=== PATIENT | female | born 1995 | race Hispanic/Latino ===

== ENCOUNTER 2021-08-29 08:42 | Emergency (ER) | payer OTHER, SELFPAY ==
--- OUTSIDE RECORDS SUMMARY | 2021-08-29 08:52 | XMS REPORT | Continuity of Care Document ---
:1995 Author Organization [facility] t Address [address] [place] [address] Care Team Providers Name Role Phone Janiya Coyle Attending Clinician Unavailable DR Mayo LUQUE Attending Clinician Unavailable Genie, Misbah Admitting Clinician Unavailable DR Mayo LUQUE Admitting Clinician Unavailable Payers Payer Name Policy Type Policy Number Effective Date Expiration Date S ource Self Pay P [id number] 2019 00:00:00 Problems This patient has no known problems. Allergies, Adverse Reactions, Alerts Allergy Allergy Status Severity Reaction(s) Onset Inactive Treating Comm ents Source Name Type Date Date Clinician No Known DA Active U [facility] No Known DA Active U 2019- [facility] [place] DA Active SV 2013- [facility] ins 01-30 [facility] 00:[facility] e 00 [facility] [place] DA Active SV RASH, CLOSES 2013- [facility] ins THROAT 01-30 [facility] 00:00: e 00 [facility] Center Medications This patient has no known medications. Procedures This patient has no known procedures. Encounters Start End Encounter Admission Attending Care Care Encounter Source Date/Time Date/Time Type Type Clinicians Facility Department ID 2021-05-30 Outpatient [facility] [id number] [facility] 16:17:44 [id number] [facility] 2019-12-10 Inpatient [facility] ELVIRAER [id number] [facility] 05:22:00 [id number] [facility] 2021-04-14 2021-04-14 Emergency DEMARCUS Sampson [id number] [facility] 06:40:00 07:55:00 Janiya [id number] [facility] 2015-11-22 2015-11-22 Outpatient Miriam ENE [facility] RAD 632 [id number] [facility] 09:02:00 23:59:00 [facility] Results Test Description Test Time Test Comments Results Result [facility] e Comments - XR CHEST 1 V 2021-04-14 07:40:00 [facility])Name: NINO BLANDON : 1995 Sex: F FAX: Tessa Owens NP [place]: B St: REG FAX: Flo Wu MD [phone] Name: NINO BLANDON [facility] : 1995 Age/S: 26/F [address] Unit #: [id number] Loc: AMANDA Caicedo [address] Phys: Tessa Owens NP Acct: [id number] Dis Date: Status: REG ER PHONE #: [phone] Exam Date: 04/14/2021 0732 FAX #: [phone] Reason: wheezing and cough EXAMS: CPT CODE: [id number] XR CHEST 1 V [id number] HISTORY: wheezing and cough TECHNIQUE: AP chest x-ray COMPARISON: None FINDINGS: No airspace consolidation or pleural effusion. Normal heart size. Mediastinal silhouette is unremarkable. Visualized osseous structures are grossly intact. IMPRESSION: No radiographic evidence of acute cardiopulmonary process. LOCATION: LP at 0740 Reported and signed by: Ally Lopez D.O. CC: Tessa Owens BUSHEL GIRL; Flo Prescott MD Technologist: LUIGI RODRÍGUEZ Trnutrd Date/Time/By: 04/14/2021 (5240) : By: [email or web address] Orig Print D/T: S: 04/14/2021 (0726) PAGE 1 Signed Report COVID 19 INHOUSE AG 2021-04-14 07:14:00 Test Item Value Reference Range Interpretation Comme nts COVID 19 INHOUSE AG (test code = [id number]) NEGATIVE NEGATIVE
[2021-08-29] MEDS ORDERED: ONDANSETRON 4 MG/2 ML VIAL ONE (09:56)
[2021-08-29] MEDS ORDERED: MORPHINE 4 MG/ML SYR ONE (09:56)
[2021-08-29 10:49] LABS: Urine Blood Negative (Negative); Urine Glucose 3+ (Negative); Urine Protein Negative (Negative); Urine Specific Gravity 1.025 (1.005-1.030)
--- NOTE | 2021-08-29 11:49 | RAD REPORT ---
EXAM DESCRIPTION: CT - C Spine Wo Con - 08/29/2021 11:27 am CLINICAL HISTORY: neck pain, left arm numbness Neck pain, radiculopathy COMPARISON: Neck Angio dated 08/29/2021 FINDINGS: The cervical vertebral body heights and disc spaces are maintained. 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 No evidence of acute cervical spine fracture or subluxation. Prevertebral soft tissues are normal in thickness. IMPRESSION: Negative for acute cervical spine abnormality. 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 All CT scans are performed using dose optimization technique as appropriate and may include automated exposure control or mA/KV adjustment according to patient size.
--- NOTE | 2021-08-29 11:56 | RAD REPORT ---
EXAM DESCRIPTION: CT - Neck Angio - 08/29/2021 11:27 am CLINICAL HISTORY: left sided neck pain, left arm numbness Neck pain, radiculopathy, slightly COMPARISON: No comparisons TECHNIQUE: CT angiography of the neck vessels was performed with MIPs. All CT scans are performed using dose optimization technique as appropriate and may include automated exposure control or mA/KV adjustment according to patient size. FINDINGS: A left aortic arch is identified with normal three vessel configuration of the great vesse ls. No significant flow abnormality is seen of the common carotid bilaterally. No significant stenosis is identified involving the cervical segments of both internal carotid arteri es. Normal flow is seen within both vertebral arteries. IMPRESSION: No significant flow abnormality of the neck vessels is identified.
[2021-08-29] MEDS ORDERED: DIAZEPAM 10 MG/2 ML INJ SYRINGE ONE (12:34)
[2021-08-29] MEDS ORDERED: NA CHLORIDE 0.9% 1,000 ML ONE (12:34)
[2021-08-29] MEDS ORDERED: KETOROLAC 30 MG/ML INJ ONE (12:34)
[2021-08-29 12:59] LABS: BUN Blood Urea Nitrogen 10 mg/dL (7-18); Bicarbonate 27 mmol/L (21-32); Glucose Level 334 mg/dL (74-106); Potassium 3.7 mmol/L (3.5-5.1); Sodium Level 135 mmol/L (136-145)
--- NOTE | 2021-08-29 14:39 | ER ---
Nurse's Notes [facility] Name: Luciana Alvarado Age: 26 yrs Sex: Female : 1995 Arrival Date: 08/29/2021 Time: 08:43 Bed 20 Private MD: Diagnosis: Strain of muscle, fascia and tendon at neck level;Hyperglycemia, unspecified Presentation: 08/29 09:22 Chief complaint: Patient states: Pt was cleaning out fridge yesterday 0700 and jh5 heard/felt her neck pop on the left posterior side and since has been in excessive pain with accompanied headache and a shooting pain down back and up into her ear with ear pain today. Coronavirus screen: Vaccine status: Patient reports being unvaccinated. Client denies travel out of the [place] in the last 14 days. At this time, the client does not indicate any symptoms associated with coronavirus-19. Ebola Screen: Patient negative for fever greater than or equal to 101.5 degrees Fahrenheit, and additional compatible Ebola Virus Disease symptoms Patient denies exposure to infectious person. Patient denies travel to an Ebola-affected area in the 21 days before illness onset. Initial Sepsis Screen: Does the patient meet any 2 criteria? No. Patient's initial sepsis screen is negative. Does the patient have a suspected source of infection? No. Patient's initial sepsis screen is negative. Risk Assessment: Do you want to hurt yourself or someone else? Patient reports no desire to harm self or others. Onset of symptoms was August 29, 2021 at 07:00. 09:22 Method Of Arrival: Ambulatory [facility] 09:22 Acuity: LC 4 5 09:48 Acuity: LC 3 iw Triage Assessment: 09:25 General: Appears in no apparent distress. uncomfortable, obese, well groomed, well jh5 developed, well nourished, Behavior is calm, cooperative, appropriate for age. Pain: Complains of pain in left posterior neck. 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 - Social history:: Smoking status: Patient denies any tobacco usage or history of. Patient uses alcohol, only on a social basis. Screenin:47 Abuse screen: Denies threats or abuse. Nutritional screening: No deficits noted. vg1 Tuberculosis screening: No symptoms or risk factors identified. Fall Risk No fall in past 12 months (0 pts). No secondary diagnosis (0 pts). IV access (20 points). Ambulatory Aid- None/Bed Rest/Nurse Assist (0 pts). Gait- Normal/Bed Rest/Wheelchair (0 pts) Mental Status- Oriented to own ability (0 pts). Total Flores Fall Scale indicates No Risk (0-24 pts). Assessment: 09:45 General: Appears in no apparent distress. uncomfortable, Behavior is calm, cooperative. vg1 Pain: Complains of pain in left side of neck Pain currently is 10 out of 10 on a pain scale. Pain began yesterday. Neuro: Level of Consciousness is awake, alert, obeys commands, Oriented to person, place, time, situation, Reports headache. Cardiovascular: Patient's skin is warm and dry. Respiratory: Airway is patent Respiratory effort is even, unlabored. GI: Abdomen is round non-distended, Reports nausea. : No signs and/or symptoms were reported regarding the genitourinary system. EENT: No signs and/or symptoms were reported regarding the EENT system. Derm: Skin is intact, is healthy with good turgor. Musculoskeletal: Circulation, motion, and sensation intact. 10:51 Reassessment: Patient appears in no apparent distress at this time. No changes from vg1 previously documented assessment. Patient and/or family updated on plan of care and expected duration. Pain level reassessed. Patient is alert, oriented x 3, equal unlabored respirations, skin warm/dry/pink. Pt states 'the medication help just a little bit but my headache wont go away'. Provider notified. 12:20 Reassessment: Patient appears in no apparent distress at this time. Patient and/or vg1 family updated on plan of care and expected duration. Pain level reassessed. Patient is alert, oriented x 3, equal unlabored respirations, skin warm/dry/pink. notified pt of medication order pt stated 'can the doctor just prescribed me medication to go home with; I just want to go home'. Provider notified. 12:30 Reassessment: finger stick results of BG was 338; pt denies of having hx of DM; denies vg1 polyuria, but states 'im just very thirsty'. Provider notified. 13:30 Reassessment: Patient appears in no apparent distress at this time. Patient and/or vg1 family updated on plan of care and expected duration. Pain level reassessed. Patient is alert, oriented x 3, equal unlabored respirations, skin warm/dry/pink. Patient states feeling better. Vital Signs: 09:22 BP 128 / 78; Pulse 91; Resp 18; Temp 98.0; Pulse Ox 100% ; Weight 90.72 kg; Height 5 [facility] ft. 2 in. (157.48 cm); Pain 10/10; 09:46 BP 117 / 69; Pulse 93; Resp 16; Pulse Ox 99% ; vg1 10:53 BP 105 / 65; Pulse 78; Resp 16; Pulse Ox 97% ; vg1 13:02 BP 112 / 67; Pulse 90; Resp 16; Pulse Ox 100% ; vg1 13:45 BP 104 / 67; Pulse 66; Resp 16; Pulse Ox 99% ; vg1 09:22 Body Mass Index 36.58 (90.72 kg, 157.48 cm) [facility] ED Course: 08:43 Patient arrived in ED. am2 09:24 Triage completed. [facility] 09:25 Arm band placed on right wrist. [facility] 09:27 Santos Santoro PA is PHCP. [facility] 09:27 Alessandro Alejandro MD is Attending Physician. [facility] 09:45 Miriam Guevara, DEVANG is Primary Nurse. [facility] 09:47 Patient has correct armband on for positive identification. Bed in low position. Call [facility] light in reach. Side rails up X 1. Adult w/ patient. 10:04 Initial lab(s) drawn, by nm, sent to lab. Inserted saline lock: 20 gauge in right 1 antecubital area, using aseptic technique. Blood collected. 11:27 CT C Spine In Process Unspecified. EDMS 11:27 CT Neck Angio In Process Unspecified. EDMS 15:06 No provider procedures requiring assistance completed. IV discontinued, intact, vg1 bleeding controlled, No redness/swelling at site. Pressure dressing applied. Administered Medications: 10:01 Drug: Zofran (Ondansetron) 4 mg Route: IVP; Site: right antecubital; vg1 10:52 Follow up: Response: No adverse reaction; Marked relief of symptoms vg1 10:03 Drug: morphine 4 mg Route: IVP; Site: right antecubital; vg1 10:52 Follow up: Response: Pain is unchanged, physician notified vg1 12:35 Drug: NS 0.9% 1000 ml Route: IV; Rate: 1 bolus; Site: right antecubital; vg1 13:51 Follow up: IV Status: Completed infusion; IV Intake: 1000ml vg1 12:36 Drug: Ketorolac 30 mg Route: IVP; Site: right antecubital; vg1 13:51 Follow up: Response: No adverse reaction; Marked relief of symptoms vg1 12:38 Drug: Valium (diazepam) 2 mg Route: IVP; Site: right antecubital; vg1 13:51 Follow up: Response: No adverse reaction; Marked relief of symptoms vg1 Intake: 13:51 IV: 1000ml; Total: 1000ml. vg1 Outcome: 14:38 Discharge ordered by . catina 15:06 Discharged to home ambulatory, with family. vg1 15:06 Condition: good 15:06 Discharge instructions given to patient, Instructed on discharge instructions, follow up and referral plans. medication usage, Demonstrated understanding of instructions, follow-up care, medications, Prescriptions given X 2. 15:06 Patient left the ED. vg1 Signatures: Dispatcher [employer] EDMS Santos Santoro PA PA jmm Williams, Irene, RN RN iw Moreno, Amanda am2 Garcia, Victoria RN DEVANG 1 Janiya Castaneda RN RN jh5 Corrections: (The following items were deleted from the chart) 10:53 10:51 Reassessment: Patient appears in no apparent distress at this time. No changes vg1 from previously documented assessment. Patient and/or family updated on plan of care and expected duration. Pain level reassessed. Patient is alert, oriented x 3, equal unlabored respirations, skin warm/dry/pink. vg1
--- NOTE | 2021-08-29 14:39 | EDPHYS ---
Physician Documentation [facility] Name: Luciana Alvarado Age: 26 yrs Sex: Female : 1995 Arrival Date: 08/29/2021 Time: 08:43 Bed 20 Private MD: ED Physician Alessandro Alejandro HPI: 08/29 09:43 This 26 yrs old Female presents to ER via Ambulatory with complaints of Neck jmm Pain, <24hrs Old, Nausea. 09:43 The patient or guardian complains of an injury, pain. Onset: The symptoms/episode jmm began/occurred acutely, 1 day(s) ago. Associated signs and symptoms: Pertinent positives: tingling, in the left arm. The pain does not radiate. This is a 26 year old female with no known medical conditions that presents emergency department with complaints of left-sided neck pain which occurred after pulling her refrigerator. Patient states she felt a sudden pop that runs along the left side of her neck to the base of her skull. Patient states she has had intermittent episodes of tingling to the left arm since. Denies unilateral weakness.. 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 - Social history:: Smoking status: Patient denies any tobacco usage or history of. Patient uses alcohol, only on a social basis. ROS: 09:43 Constitutional: Negative for fever, chills, and weight loss, Cardiovascular: Negative jmm for chest pain, palpitations, and edema, Respiratory: Negative for shortness of breath, cough, wheezing, and pleuritic chest pain. 09:43 Neck: Positive for pain with movement. 09:43 All other systems are negative. Exam: 09:43 Constitutional: This is a well developed, well nourished patient who is awake, alert, jmm and in no acute distress. Head/Face: atraumatic. Eyes: EOMI, no conjunctival erythema appreciated ENT: Moist Mucus Membranes 09:43 Chest/axilla: Normal chest wall appearance and motion. Cardiovascular: Regular rate and rhythm. No edema appreciated Respiratory: Normal respirations, no respiratory distress appreciated Abdomen/GI: Non distended, soft 09:43 Neck: C-spine: appears grossly normal, ROM/movement: pain, that is moderate, with any movement. 09:43 Back: ROM is painful, with all movement. 09:43 Musculoskeletal/extremity: ROM: intact in all extremities. 09:43 Skin: Appearance: Color: normal in color. 09:43 Neuro: Orientation: is normal, Mentation: is normal, Memory: is normal. 09:43 Psych: Behavior/mood is pleasant, cooperative. Vital Signs: 09:22 BP 128 / 78; Pulse 91; Resp 18; Temp 98.0; Pulse Ox 100% ; Weight 90.72 kg; Height 5 jh5 ft. 2 in. (157.48 cm); Pain 10/10; 09:46 BP 117 / 69; Pulse 93; Resp 16; Pulse Ox 99% ; vg1 10:53 BP 105 / 65; Pulse 78; Resp 16; Pulse Ox 97% ; vg1 13:02 BP 112 / 67; Pulse 90; Resp 16; Pulse Ox 100% ; vg1 13:45 BP 104 / 67; Pulse 66; Resp 16; Pulse Ox 99% ; vg1 09:22 Body Mass Index 36.58 (90.72 kg, 157.48 cm) 5 MDM: 09:43 Patient medically screened. [facility] 14:37 Data reviewed: vital signs, nurses notes. Counseling: I had a detailed discussion with catina the patient and/or guardian regarding: the historical points, exam findings, and any diagnostic results supporting the discharge/admit diagnosis, radiology results, the need for outpatient follow up, to return to the emergency department if symptoms worsen or persist or if there are any questions or concerns that arise at home. ED course: Urinalysis revealed +3 glucose which raise concerns the patient may have underlying diabetes mellitus. Mother is a diabetic. CT imaging was negative I do not suspect cord compression or dissection. Patient's chemistry was otherwise normal. I do not suspect diabetic ketoacidosis. Patient advised to follow up with her PCP or establish with primary care provider for further evaluation otherwise given strict return precautions. Patient understood and agrees plan of care.. 08/29 09:46 Order name: BMP; Complete Time: 13:05 [facility] 08/29 10:49 Order name: Urine Dipstick-Ancillary; Complete Time: 10:54 EDMS 08/29 09:45 Order name: CT C Spine; Complete Time: 11:52 [facility] 08/29 09:45 Order name: CT Neck Angio; Complete Time: 11:59 [facility] 08/29 12:39 Order name: Glucose, Ancillary Testing; Complete Time: 12:47 [facility] 08/29 14:02 Order name: Glucose, Ancillary Testing; Complete Time: 14:16 [facility] 08/29 09:45 Order name: Saline Lock; Complete Time: 10:04 [facility] 08/29 09:46 Order name: Urine Test (obtain specimen); Complete Time: 10:51 [facility] 08/29 12:23 Order name: Finger Stick; Complete Time: 12:27 [facility] Administered Medications: 10:01 Drug: Zofran (Ondansetron) 4 mg Route: IVP; Site: right antecubital; vg1 10:52 Follow up: Response: No adverse reaction; Marked relief of symptoms vg1 10:03 Drug: morphine 4 mg Route: IVP; Site: right antecubital; vg1 10:52 Follow up: Response: Pain is unchanged, physician notified vg1 12:35 Drug: NS 0.9% 1000 ml Route: IV; Rate: 1 bolus; Site: right antecubital; vg1 13:51 Follow up: IV Status: Completed infusion; IV Intake: 1000ml vg1 12:36 Drug: Ketorolac 30 mg Route: IVP; Site: right antecubital; vg1 13:51 Follow up: Response: No adverse reaction; Marked relief of symptoms vg1 12:38 Drug: Valium (diazepam) 2 mg Route: IVP; Site: right antecubital; vg1 13:51 Follow up: Response: No adverse reaction; Marked relief of symptoms vg1 Disposition Summary: 08/29/21 14:38 Discharge Ordered Location: Home [facility] Condition: Stable [facility] Diagnosis - Strain of muscle, fascia and tendon at neck level jmm - Hyperglycemia, unspecified jm Followup: [facility] - With: Private Physician - When: 2 - 3 days - Reason: Recheck today's complaints, Continuance of care, Re-evaluation by your physician Discharge Instructions: - Discharge Summary Sheet [facility] - Hyperglycemia jm - Cervical Strain and Sprain Rehab-SportsMed [facility] Forms: - Medication Reconciliation Form jmm - Thank You Letter jmm - Antibiotic Education jmm - Prescription Opioid Use jmm - Family Work Release iw Prescriptions: - Ibuprofen 800 mg Oral Tablet - take 1 tablet by ORAL route every 8 hours As needed take with food; 30 tablet; jmm Refills: 0, Product Selection Permitted - Zanaflex 4 mg Oral Tablet - take 1 tablet by ORAL route every 8 hours As needed; 20 tablet; Refills: 0, deloresm Product Selection Permitted Signatures: Dispatcher [employer] Santos Casey PA PA jmm Garcia, Victoria, RN RN vg1 Janiya Castaneda RN RN jh5
[2021-08-29 15:28] VITALS: TEMP 98
[2021-08-29 15:33] VITALS: BP 104/67; O2SAT 99
== END 2021-08-29 15:06 | disposition home or self-care (01) ==
LOC: ER 08:42
DX: S16.1XXA Strain of muscle, fascia and tendon at neck level, initial encounter (principal); R73.9 Hyperglycemia, unspecified; X50.0XXA Overexertion from strenuous movement or load, initial encounter; Y92.009 Unspecified place in unspecified non-institutional (private) residence as the place of occurrence of the external cause; Z88.0 Allergy status to penicillin
CPT/HCPCS: 36415; 70498; 72125; 80048; 81003; 82947; 96361; 96374; 96375; 99284; J2405; J3360; J7030; Q9967

== ENCOUNTER 2022-02-12 22:48 | Emergency (ER) | payer SELFPAY ==
--- NOTE | 2022-02-12 23:14 | ER ---
Nurse's Notes [facility] Name: Luciana Alvarado Age: 27 yrs Sex: Female : 1995 Arrival Date: 02/12/2022 Time: 22:51 Bed Waiting Private MD: Diagnosis: Coronavirus infection, unspecified Presentation: 02/12 23:09 Chief complaint: Patient states: COVID + - headache, sour stomach since Thursday. bb Coronavirus screen: Client presents with at least one sign or symptom that may indicate coronavirus-19. Standard/surgical mask placed on the client. Ebola Screen: No symptoms or risks identified at this time. Initial Sepsis Screen: Does the patient meet any 2 criteria? No. Patient's initial sepsis screen is negative. Does the patient have a suspected source of infection? No. Patient's initial sepsis screen is negative. Risk Assessment: Do you want to hurt yourself or someone else? Patient reports no desire to harm self or others. Onset of symptoms was February 12, 2022. 23:09 Method Of Arrival: Ambulatory bb 23:09 Acuity: LC 4 bb Triage Assessment: 23:12 Headache History: Denies prior headaches. General: Appears in no apparent distress. bb comfortable, Behavior is calm, cooperative, appropriate for age. Pain: Complains of pain in face Pain does not radiate. Pain currently is 8 out of 10 on a pain scale. Quality of pain is described as throbbing, Pain began Also complains of no other associated symptoms. EENT: No signs and/or symptoms were reported regarding the EENT system. Neuro: Level of Consciousness is awake, alert, obeys commands, Oriented to person, place, time, situation. Cardiovascular: Capillary refill < 3 seconds Patient's skin is warm and dry. Respiratory: Airway is patent Respiratory effort is even, unlabored. 23:13 GI: Abdomen is round non-distended. : No signs and/or symptoms were reported bb regarding the genitourinary system. Derm: No signs and/or symptoms reported regarding the dermatologic system. Musculoskeletal: No signs and/or symptoms reported regarding the musculoskeletal system. 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 - Social history:: Smoking status: Patient denies any tobacco usage or history of. Patient/guardian denies using alcohol. Screenin:19 Abuse screen: Denies threats or abuse. Denies injuries from another. Nutritional bb screening: No deficits noted. Tuberculosis screening: No symptoms or risk factors identified. Fall Risk None identified. Assessment: 23:19 Reassessment: See triage assessment. bb Vital Signs: 23:09 BP 135 / 90; Pulse 80; Resp 18; Temp 97.7(TE); Pulse Ox 100% on R/A; Weight 97.52 kg; bb Height 5 ft. 2 in. (157.48 cm); Pain 6/10; 23:09 Body Mass Index 39.32 (97.52 kg, 157.48 cm) bb ED Course: 22:51 Patient arrived in ED. bp1 23:07 [facility] Seth[facility]-C [facility] kb 23:07 Ned Murillo MD is Attending Physician. kb 23:12 Triage completed. bb 23:13 Arm band placed on right wrist. bb 23:19 Patient has correct armband on for positive identification. Placed in gown. Bed in low bb position. Call light in reach. Side rails up X2. washer and crusher tender on. Pulse ox on. NIBP on. Door closed. Noise minimized. Warm blanket given. 23:19 No provider procedures requiring assistance completed. bb 23:20 Patient did not have IV access during this emergency room visit. bb Administered Medications: No medications were administered Medication: 23:19 VIS not applicable for this client. bb Outcome: 23:13 Discharge ordered by . kb 23:20 Discharged to home ambulatory, with family. bb 23:20 Condition: stable 23:20 Discharge instructions given to patient, family, Instructed on discharge instructions, follow up and referral plans. medication usage, Demonstrated understanding of instructions, follow-up care, medications, Prescriptions given X 1. 23:20 Patient left the ED. bb Signatures: Kristine Sethi FNP-C FNP-Ckb Ballard, Brenda, RN RN bb Re Jamil bp1 Corrections: (The following items were deleted from the chart) 23:13 23:12 PMHx: None; bb bb
--- NOTE | 2022-02-12 23:14 | EDPHYS ---
Physician Documentation [facility] Name: Luciana Alvarado Age: 27 yrs Sex: Female : 1995 Arrival Date: 02/12/2022 Time: 22:51 Bed Waiting Private MD: ED Physician Ned Murillo HPI: 02/13 01:08 This 27 yrs old Female presents to ER via Ambulatory with complaints of Cough, kb Headache. 01:08 The patient or guardian reports cough, that is intermittent, described as mild. Onset: kb The symptoms/episode began/occurred 4 day(s) ago. Severity of symptoms: At their worst the symptoms were moderate, in the emergency department the symptoms are unchanged. Modifying factors: The symptoms are alleviated by nothing, the symptoms are aggravated by nothing. Associated signs and symptoms: The patient has no apparent associated signs or symptoms. The patient has not experienced similar symptoms in the past. The patient has not recently seen a physician. Pt reports cough and headache that started on Thursday. States she tested positive for covid on Thursday as well. 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 - Social history:: Smoking status: Patient denies any tobacco usage or history of. Patient/guardian denies using alcohol. ROS: 02/13 01:08 Constitutional: Negative for fever, chills, and weight loss. kb Respiratory: Positive for cough, Negative for dyspnea on exertion, hemoptysis, orthopnea, pleurisy, shortness of breath, sputum production, wheezing. Neuro: Positive for headache. All other systems are negative. Exam: 01:08 Constitutional: This is a well developed, well nourished patient who is awake, alert, kb and in no acute distress. Head/Face: Normocephalic, atraumatic. ENT: Moist Mucous membranes Cardiovascular: Regular rate and rhythm with a normal S1 and S2. No gallops, murmurs, or rubs. No pulse deficits. Respiratory: Respirations even and unlabored. No increased work of breathing. Talking in full sentences Skin: Warm, dry with normal turgor. Normal color. MS/ Extremity: Pulses equal, no cyanosis. Neurovascular intact. Full, normal range of motion. Neuro: Awake and alert, GCS 15, oriented to person, place, time, and situation. Moves all extremities. Normal gait. Psych: Awake, alert, with orientation to person, place and time. Behavior, mood, and affect are within normal limits. Vital Signs: 02/12 23:09 BP 135 / 90; Pulse 80; Resp 18; Temp 97.7(TE); Pulse Ox 100% on R/A; Weight 97.52 kg; bb Height 5 ft. 2 in. (157.48 cm); Pain 6/10; 23:09 Body Mass Index 39.32 (97.52 kg, 157.48 cm) bb MDM: 23:08 Patient medically screened. kb 23:16 Data reviewed: vital signs, nurses notes. Data interpreted: Pulse oximetry: on room air kb is 100 %. Interpretation: normal. Counseling: I had a detailed discussion with the patient and/or guardian regarding: the historical points, exam findings, and any diagnostic results supporting the discharge/admit diagnosis, the need for outpatient follow up, a family practitioner, to return to the emergency department if symptoms worsen or persist or if there are any questions or concerns that arise at home. Administered Medications: No medications were administered Disposition Summary: 02/12/22 23:13 Discharge Ordered Location: Home kb Condition: Stable kb Diagnosis - Coronavirus infection, unspecified kb Followup: kb - With: Emergency Department - When: As needed - Reason: Worsening of condition Followup: kb - With: Private Physician - When: 2 - 3 days - Reason: Recheck today's complaints, Continuance of care, Re-evaluation by your physician Discharge Instructions: - Discharge Summary Sheet kb - Viral Respiratory Infection, [id number] kb - COVID-19 kb Forms: - Medication Reconciliation Form kb - Thank You Letter kb - Antibiotic Education kb - Prescription Opioid Use kb Prescriptions: - Tessalon Perles 100 mg Oral Capsule - take 1 capsule by ORAL route every 8 hours As needed; 15 capsule; Refills: 0, kb Product Selection Permitted Signatures: Kristine Sethi, AMARI-C AMARI-Claudia Nair, RN RN bb Corrections: (The following items were deleted from the chart) 23:13 23:12 PMHx: None; liz hill
[2022-02-13 01:27] VITALS: BP 135/90; TEMP 97.7; O2SAT 100
== END 2022-02-12 23:20 | disposition home or self-care (01) ==
LOC: ER 22:48
DX: U07.1 COVID-19 (principal); E11.9 Type 2 diabetes mellitus without complications; Z88.0 Allergy status to penicillin

== ENCOUNTER 2022-06-21 22:23 | Emergency (ER) | payer SELFPAY ==
[2022-06-21] MEDS ORDERED: NA CHLORIDE 0.9% 1,000 ML ONE (22:56)
[2022-06-21] MEDS ORDERED: METOCLOPRAMIDE 10 MG/2mL INJ ONE (22:56)
[2022-06-21] MEDS ORDERED: DIPHENHYDRAMINE 50 MG/ML VIAL ONE (22:56)
[2022-06-21] MEDS ORDERED: KETOROLAC 30 MG/ML INJ ONE (22:56)
[2022-06-21 23:16] LABS: Absolute Lymphocytes (CBC) 2.4 K/uL (0.7-4.9); Hematocrit 44.7 % (36.0-45.0); Lymphocytes % 26.8 % (15.3-44.8); MCV 77.3 fL (80-100); MPV 8.3 fL (7.6-11.3); RBC Red Blood Cell Count 5.78 M/uL (3.86-4.86)
[2022-06-21 23:32] LABS: Potassium 3.4 mmol/L (3.5-5.1)
--- NOTE | 2022-06-21 23:57 | EDPHYS ---
Physician Documentation [facility] Name: Luciana Alvarado Age: 27 yrs Sex: Female : 1995 Arrival Date: 06/21/2022 Time: 22:26 Bed 12 Private MD: ED Physician Ned Murillo HPI: 06/21 23:46 This 27 yrs old Female presents to ER via Ambulatory with complaints of kb Dizziness, Headache, Vomiting. 23:46 The patient complains of pain to the top of head. The patient describes the headache as kb constant. Onset: The symptoms/episode began/occurred this morning. Associated signs and symptoms: Pertinent positives: nausea, Photophobia vomiting. Severity of symptoms: At its worst the pain was moderate, in the emergency department the pain is unchanged. Headache History: The patient has had previous headaches and this one is similar to previous episodes. The symptoms are alleviated by nothing. the symptoms are aggravated by lights. The patient has experienced similar episodes in the past. The patient has not recently seen a physician. Historical: - Allergies: 22:38 PENICILLINS; hb - PMHx: 22:38 diabetes mellitus; hb - Immunization history:: Adult Immunizations up to date. - Social history:: Smoking status: Patient denies any tobacco usage or history of. ROS: 23:45 Constitutional: Negative for fever, chills, and weight loss. kb 23:45 Abdomen/GI: Positive for nausea and vomiting, Negative for abdominal pain. 23:45 Neuro: Positive for headache. 23:45 All other systems are negative. Exam: 23:45 Head/Face: Normocephalic, atraumatic. Eyes: Pupils equal round and reactive to light, kb extra-ocular motions intact. Lids and lashes normal. Conjunctiva and sclera are non-icteric and not injected. Cornea within normal limits. Periorbital areas with no swelling, redness, or edema. ENT: Moist Mucous membranes Cardiovascular: Regular rate and rhythm with a normal S1 and S2. No gallops, murmurs, or rubs. No pulse deficits. Respiratory: Respirations even and unlabored. No increased work of breathing. Talking in full sentences Abdomen/GI: Soft, non-tender. No distention Back: No spinal tenderness. No costovertebral tenderness. Full range of motion. Skin: Warm, dry with normal turgor. Normal color. MS/ Extremity: Pulses equal, no cyanosis. Neurovascular intact. Full, normal range of motion. Neuro: Awake and alert, GCS 15, oriented to person, place, time, and situation. Moves all extremities. Normal gait. Psych: Awake, alert, with orientation to person, place and time. Behavior, mood, and affect are within normal limits. 23:45 Constitutional: The patient appears alert, awake, uncomfortable. Vital Signs: 22:37 BP 137 / 108; Pulse 76; Resp 16; Temp 98.3; Pulse Ox 100% on R/A; Weight 102.06 kg; hb Height 5 ft. 2 in. (157.48 cm); Pain 10/10; 22:37 Body Mass Index 41.15 (102.06 kg, 157.48 cm) hb MDM: 22:42 Patient medically screened. kb 23:45 Data reviewed: vital signs, nurses notes. Data interpreted: Pulse oximetry: on room air kb is 100 %. Interpretation: normal. Counseling: I had a detailed discussion with the patient and/or guardian regarding: the historical points, exam findings, and any diagnostic results supporting the discharge/admit diagnosis, lab results, the need for outpatient follow up, a family practitioner, to return to the emergency department if symptoms worsen or persist or if there are any questions or concerns that arise at home. 06/21 22:48 Order name: CBC with Diff; Complete Time: 23:24 kb 06/21 22:48 Order name: Basic Metabolic Panel; Complete Time: 23:45 kb 06/21 22:48 Order name: IV Start; Complete Time: 23:11 kb Administered Medications: 23:00 Drug: NS 0.9% 1000 ml Route: IV; Rate: 1000 ml; Site: right antecubital; kb3 23:01 Drug: Reglan (metoCLOPramide) 10 mg Route: IVP; Site: right antecubital; kb3 23:55 Follow up: Response: No adverse reaction hb 23:04 Drug: Ketorolac 30 mg Route: IVP; Site: right antecubital; kb3 23:55 Follow up: Response: No adverse reaction hb 23:06 Drug: Benadryl (diphenhydrAMINE) 12.5 mg Route: IVP; Site: right antecubital; kb3 23:55 Follow up: Response: No adverse reaction hb Disposition: 06/22 06:03 Co-signature as Attending Physician, Ned Murillo MD I agree with the assessment and kdr plan of care. Disposition Summary: 06/21/22 23:56 Discharge Ordered Location: Home kb Condition: Stable kb Diagnosis - Migraine without aura, not intractable kb Followup: kb - With: Emergency Department - When: As needed - Reason: Worsening of condition Followup: kb - With: Private Physician - When: 2 - 3 days - Reason: Recheck today's complaints, Continuance of care, Re-evaluation by your physician Discharge Instructions: - Discharge Summary Sheet kb - Migraine Headache, [id number] kb Forms: - Medication Reconciliation Form kb - Thank You Letter kb - Antibiotic Education kb - Prescription Opioid Use kb Signatures: Dispatcher [employer] EDMS Kristine Sethi, ADMINISTRATIVE TECH-C ADMINISTRATIVE TECH-Ned Collins MD MD kdr Baxter, Heather, DEVANG RN Gabriela Ruby RN RN kb3
--- NOTE | 2022-06-21 23:57 | ER ---
Nurse's Notes [facility] Name: Luciana Alvarado Age: 27 yrs Sex: Female : 1995 Arrival Date: 06/21/2022 Time: 22:26 Bed 12 Private MD: Diagnosis: Migraine without aura, not intractable Presentation: 06/21 22:37 Chief complaint: Throbbing headache, chills, and N/V since this morning. Coronavirus hb screen: Client presents with at least one sign or symptom that may indicate coronavirus-19. Standard/surgical mask placed on the client. Provider contacted for isolation considerations. Ebola Screen: No symptoms or risks identified at this time. Initial Sepsis Screen: Does the patient meet any 2 criteria? No. Patient's initial sepsis screen is negative. Does the patient have a suspected source of infection? No. Patient's initial sepsis screen is negative. Risk Assessment: Do you want to hurt yourself or someone else? Patient reports no desire to harm self or others. Onset of symptoms was June 21, 2022. 22:37 Method Of Arrival: Ambulatory hb 22:37 Acuity: LC 3 hb Historical: - Allergies: 22:38 PENICILLINS; hb - PMHx: 22:38 diabetes mellitus; hb - Immunization history:: Adult Immunizations up to date. - Social history:: Smoking status: Patient denies any tobacco usage or history of. Screenin:02 Abuse screen: Denies threats or abuse. Denies injuries from another. Nutritional hb screening: No deficits noted. Tuberculosis screening: No symptoms or risk factors identified. Fall Risk None identified. Assessment: 23:01 General: Appears in no apparent distress. uncomfortable, Behavior is calm, cooperative. hb Pain: Pain currently is 10 out of 10 on a pain scale. Neuro: Level of Consciousness is awake, alert, obeys commands, Oriented to person, place, time, situation, Reports dizziness, headache. Cardiovascular: Patient's skin is warm and dry. Respiratory: Respiratory effort is even, unlabored, Respiratory pattern is regular, symmetrical. GI: Reports nausea, vomiting. : No signs and/or symptoms were reported regarding the genitourinary system. EENT: No signs and/or symptoms were reported regarding the EENT system. Derm: Skin is pink, warm \T\ dry. Musculoskeletal: No signs and/or symptoms reported regarding the musculoskeletal system. 23:56 Reassessment: Patient appears in no apparent distress at this time. Patient and/or hb family updated on plan of care and expected duration. Pain level reassessed. Patient is alert, oriented x 3, equal unlabored respirations, skin warm/dry/pink. 23:57 General: Pt reports feeling much better. Updated regarding pending discharge after IVF kb3 infusion complete. 06/22 00:51 Reassessment: Patient states feeling better. Patient states symptoms have improved. tw5 Vital Signs: 06/21 22:37 BP 137 / 108; Pulse 76; Resp 16; Temp 98.3; Pulse Ox 100% on R/A; Weight 102.06 kg; hb Height 5 ft. 2 in. (157.48 cm); Pain 10/10; 22:37 Body Mass Index 41.15 (102.06 kg, 157.48 cm) hb ED Course: 22:26 Patient arrived in ED. ja2 22:38 Triage completed. hb 22:38 Arm band placed on. hb 22:39 Gabriela Ruby, RN is Primary Nurse. kb3 22:42 Kristine Sethi FNP-C is PHCP. kb 22:42 Ned Murillo MD is Attending Physician. kb 23:00 No provider procedures requiring assistance completed. Inserted saline lock: 20 gauge kb3 in right antecubital area, using aseptic technique. Blood collected. 23:02 Patient has correct armband on for positive identification. hb 06/22 00:51 IV discontinued, intact, bleeding controlled, No redness/swelling at site. Pressure tw5 dressing applied. Administered Medications: 06/21 23:00 Drug: NS 0.9% 1000 ml Route: IV; Rate: 1000 ml; Site: right antecubital; kb3 23:01 Drug: Reglan (metoCLOPramide) 10 mg Route: IVP; Site: right antecubital; kb3 23:55 Follow up: Response: No adverse reaction hb 23:04 Drug: Ketorolac 30 mg Route: IVP; Site: right antecubital; kb3 23:55 Follow up: Response: No adverse reaction hb 23:06 Drug: Benadryl (diphenhydrAMINE) 12.5 mg Route: IVP; Site: right antecubital; kb3 23:55 Follow up: Response: No adverse reaction hb Medication: 23:02 VIS not applicable for this client. hb Outcome: 23:56 Discharge ordered by MD. salas 06/22 00:51 Discharged to home ambulatory. tw5 Condition: improved Discharge instructions given to patient, Instructed on discharge instructions, follow up and referral plans. Demonstrated understanding of instructions, follow-up care. 00:52 Patient left the ED. tw5 Signatures: Kristine Sethi, AMARI-C LANGUAGE PATH-Kiley Kumar, RN RN Janiya Quesada Tiffany tw5 Gabriela Ruby, DEVANG RN kb3
== END 2022-06-22 00:52 | disposition home or self-care (01) ==
LOC: ER 22:23
DX: G43.009 Migraine without aura, not intractable, without status migrainosus (principal)
CPT/HCPCS: 36415; 80048; 85025; 96374; 96375; 99283; J1200; J2765; J7030

== ENCOUNTER 2023-01-12 08:16 | Emergency (ER) | payer SELFPAY ==
--- NOTE | 2023-01-12 08:35 | EDPHYS ---
Physician Documentation [facility] Name: Luciana Alvarado Age: 28 yrs Sex: Female : 1995 Arrival Date: 01/12/2023 Time: 08:16 Bed Waiting Private MD: ED Physician Micky Estrada HPI: 01/12 08:30 This 28 yrs old Female presents to ER via Ambulatory with complaints of Mouth jr8 Swelling, Mouth Pain. 08:30 The patient presents with pain. The problem is located in the right upper jaw. Onset: jr8 The symptoms/episode began/occurred acutely, yesterday. Duration: The symptoms are continuous. Modifying factors: The symptoms are alleviated by nothing, the symptoms are aggravated by chewing, talking. Associated signs and symptoms: The patient has no apparent associated signs or symptoms. Severity of symptoms: At their worst the symptoms were moderate, in the emergency department the symptoms are unchanged. The patient has not experienced similar symptoms in the past. The patient has not recently seen a physician. Patient stated that she started with dental pain last night to right upper jaw. Now radiating to face and ear. Denies fevers. 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 - Social history:: Smoking status: unknown. ROS: 08:30 Eyes: Negative for injury, pain, redness, and discharge, Neck: Negative for injury, jr8 pain, and swelling, Cardiovascular: Negative for chest pain, palpitations, and edema, Respiratory: Negative for shortness of breath, cough, wheezing, and pleuritic chest pain, Abdomen/GI: Negative for abdominal pain, nausea, vomiting, diarrhea, and constipation, Back: Negative for injury and pain, MS/Extremity: Negative for injury and deformity, Skin: Negative for injury, rash, and discoloration. 08:30 ENT: Positive for dental pain. Exam: 08:30 Constitutional: This is a well developed, well nourished patient who is awake, alert, jr8 and in no acute distress. Head/Face: Normocephalic, atraumatic. Eyes: Pupils equal round and reactive to light, extra-ocular motions intact. Lids and lashes normal. Conjunctiva and sclera are non-icteric and not injected. Cornea within normal limits. Periorbital areas with no swelling, redness, or edema. Neck: Trachea midline, no thyromegaly or masses palpated, and no cervical lymphadenopathy. Supple, full range of motion without nuchal rigidity, or vertebral point tenderness. No Meningismus. Cardiovascular: Regular rate and rhythm with a normal S1 and S2. No gallops, murmurs, or rubs. Normal PMI, no JVD. No pulse deficits. Respiratory: Lungs have equal breath sounds bilaterally, clear to auscultation and percussion. No rales, rhonchi or wheezes noted. No increased work of breathing, no retractions or nasal flaring. Skin: Warm, dry with normal turgor. Normal color with no rashes, no lesions, and no evidence of cellulitis. MS/ Extremity: Pulses equal, no cyanosis. Neurovascular intact. Full, normal range of motion. Neuro: Awake and alert, GCS 15, oriented to person, place, time, and situation. Motor strength 5/5 in all extremities. Sensory grossly intact. 08:30 ENT: Exam is negative for ear discharge, ear swelling, sinus tenderness, enlarged tonsils, exudate, abnormal voice, Mouth: Lips: moist, Oral mucosa: pink and intact, Gums: normal with healthy appearance, Tongue: is normal, Dental exam: pain, that is moderate, specifically in the upper right second molar (#2) and upper right first molar (#3). Vital Signs: 08:28 BP 139 / 97; Pulse 84; Resp 17; Temp 97; Pulse Ox 100% ; jl7 MDM: 08:30 Data reviewed: vital signs, nurses notes, and as a result, I will discharge patient. jr8 Counseling: I had a detailed discussion with the patient and/or guardian regarding: the historical points, exam findings, and any diagnostic results supporting the discharge/admit diagnosis, the need for outpatient follow up, a dentist, to return to the emergency department if symptoms worsen or persist or if there are any questions or concerns that arise at home. 08:34 Patient medically screened. jr8 08:39 Differential diagnosis: dental caries, dental abscess, gingivostomatitis, sinus jr8 infection, peritonsillar abscess. ED course: Discussed with patient that she most likely has a dental infection. No other oral or pharyngeal abnormalities. At this time we will start her on antibiotics, anti-inflammatories, pain medicine. Needs to follow-up with a dentist within the week. No other acute abnormalities on physical exam vital signs stable and afebrile. At this time labs or CT not indicated. If she were to worsen at any point to immediately come back to the emergency room for further evaluation. Patient understood instructions and will follow up and or come back to the emergency room for further evaluation.. Administered Medications: No medications were administered Disposition: 11:58 Co-signature as Attending Physician, Micky Estrada MD I reviewed the patient's care rn provided by the Advanced Practice Provider and agree with the diagnosis and treatment plan. Disposition Summary: 01/12/23 08:34 Discharge Ordered Location: Home jr8 Problem: new jr8 Symptoms: are unchanged jr8 Condition: Stable jr8 Diagnosis - Periapical abscess without sinus jr8 Followup: jr8 - With: Calin Dash DDS - When: 5 - 6 days - Reason: Recheck today's complaints, Continuance of care, Re-evaluation by your physician Discharge Instructions: - Discharge Summary Sheet jr8 - Dental Abscess jr8 - Dental Pain jr8 Forms: - Medication Reconciliation Form jr8 - Thank You Letter jr8 - Antibiotic Education jr8 - Prescription Opioid Use jr8 Prescriptions: - Clindamycin HCl 300 mg Oral Capsule - take 1 capsule by ORAL route every 6 hours for 10 days; 40 capsule; Refills: 0, jr8 Product Selection Permitted - Ibuprofen 800 mg Oral Tablet - take 1 tablet by ORAL route every 12 hours As needed take with food; 20 tablet; jr8 Refills: 0, Product Selection Permitted - Tramadol 50 mg Oral Tablet - take 2 tablet by ORAL route every 8 hours as needed; 24 tablet; Refills: 0, jr8 Product Selection Permitted Signatures: Micky Estrada MD MD rn Roszak, Josh, PA PA jr8 Des Lisa RN RN jl7
--- NOTE | 2023-01-12 08:35 | ER ---
Nurse's Notes [facility] Name: Luciana Alvarado Age: 28 yrs Sex: Female : 1995 Arrival Date: 01/12/2023 Time: 08:16 Bed Waiting Private MD: Diagnosis: Periapical abscess without sinus Presentation: 01/12 08:28 Chief complaint: Patient states: Right upper tooth hurting since last night. jl7 Coronavirus screen: At this time, the client does not indicate any symptoms associated with coronavirus-19. Ebola Screen: No symptoms or risks identified at this time. Initial Sepsis Screen: Does the patient meet any 2 criteria? No. Patient's initial sepsis screen is negative. Does the patient have a suspected source of infection? No. Patient's initial sepsis screen is negative. Risk Assessment: Do you want to hurt yourself or someone else? Patient reports no desire to harm self or others. Onset of symptoms was January 11, 2023. 08:28 Method Of Arrival: Ambulatory jl7 08:28 Acuity: LC 4 jl7 Triage Assessment: 08:29 General: Appears in no apparent distress. uncomfortable, Behavior is calm, cooperative, jl7 appropriate for age. Pain: Complains of pain in mouth. EENT: Oral mucosa is moist. Neuro: Level of Consciousness is awake, alert, obeys commands, Oriented to person, place, time, situation. Cardiovascular: Patient's skin is warm and dry. Respiratory: Airway is patent Respiratory effort is even, unlabored, Respiratory pattern is regular, symmetrical. Derm: Skin is pink, warm \T\ dry. 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 - Social history:: Smoking status: unknown. Vital Signs: 08:28 BP 139 / 97; Pulse 84; Resp 17; Temp 97; Pulse Ox 100% ; jl7 ED Course: 08:19 Patient arrived in ED. mr 08:21 Joni Mercedes PA is PHCP. jr8 08:21 Micky Estrada MD is Attending Physician. jr8 08:29 Triage completed. jl7 08:29 Arm band placed on right wrist. jl7 08:31 No provider procedures requiring assistance completed. Patient did not have IV access jl7 during this emergency room visit. 08:34 Calin Dash DDS is Referral Physician. jr8 Administered Medications: No medications were administered Outcome: 08:34 Discharge ordered by . jr8 08:40 Discharged to home ambulatory. jl7 08:40 Condition: stable 08:40 Discharge instructions given to patient, Instructed on discharge instructions, follow up and referral plans. medication usage, Demonstrated understanding of instructions, follow-up care, medications, Prescriptions given X 3. 08:41 Patient left the ED. jl7 Signatures: Deanna Schmitt mr Joni Mercedes PA PA jr8 Des Lisa RN RN jl7
[2023-01-12 08:47] VITALS: BP 139/97; TEMP 97; O2SAT 100
== END 2023-01-12 08:41 | disposition home or self-care (01) ==
LOC: ER 08:16
DX: K04.7 Periapical abscess without sinus (principal)
CPT/HCPCS: 99283

== ENCOUNTER → 2023-11-04 | Emergency (ER) | payer SELFPAY ==
[~2023-11-04] MED LIST: ACETAMINOPHEN 500 MG TAB ONE; GUAIFENESIN/DM 5 ML UCUP ONE; IBUPROFEN 400 MG TAB ONE; PROMETHAZINE 25 MG TABLET ONE
[2023-11-04 01:56] LABS: SARS-CoV-2 Antigen CONTROL BLUE LINE VIS/BG OK; SARS-CoV-2 Antigen Rapid Res Negative (Negative)
[2023-11-04 02:13] LABS: Specific Gravity > 1.030 (1.005-1.030); Sqamous Epithelial <5 /HPF (None Seen); Urine Bacteria None Seen /HPF (<20); Urine Bilirubin NEGATIVE (Negative); Urine Blood Negative (Negative); Urine Clarity Clear (Clear); Urine Color Colorless (Yellow); Urine Culture Reflex Order NOT NEEDED; Urine Glucose 4+ (Over) (Negative); Urine Ketones 1+ (Negative); Urine Micro Reflex YN NO BILL MICROSCOPIC; Urine Nitrite NEGATIVE (Negative); Urine Protein NEGATIVE (Negative); Urine RBC None Seen /HPF (None Seen); Urine Urobilinogen Normal (Normal); Urine WBC <5 /HPF (<5); Urine pH 7.5 (5.0-7.0)
--- NOTE | 2023-11-04 03:10 | EDPHYS ---
Physician Documentation [facility] Name: Luciana Alvarado Age: 28 yrs Sex: Female : 1995 Arrival Date: 11/04/2023 Time: 01:10 Bed 13 Private MD: ED Physician Blu Leahy HPI: 11/03 01:18 This 28 yrs old Female presents to ER via Unassigned with complaints of Cough, sp4 Fever, Congestion. 03:06 28-year-old female presents to the emergency room with complaint of cough fever sp4 congestion and feeling unwell for 1 week. 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 Last tetanus immunization: < 10 years ago Flu vaccine is not up to date. - Social history:: Smoking status: Patient denies any tobacco usage or history of. Patient/guardian denies using alcohol, street drugs. - Family history:: not pertinent. ROS: 03:06 Constitutional: Positive cough fever congestion sinus pressure. positive Feeling sp4 unwell for 1 week 03:06 All other systems are negative, Exam: 03:06 Constitutional: This is a well developed, well nourished patient who is awake, alert, sp4 and in no acute distress. Head/Face: Normocephalic, atraumatic. Eyes: Pupils equal round and reactive to light, extra-ocular motions intact. Lids and lashes normal. Conjunctiva and sclera are not injected. Cornea within normal limits. Periorbital areas with no swelling, redness, or edema. ENT: Nares patent. No nasal discharge, no septal abnormalities noted. Tympanic membranes are normal and external auditory canals are clear. Oropharynx with no redness, swelling, or masses, exudates, or evidence of obstruction, uvula midline. Mucous membranes moist. Neck: Trachea midline, no thyromegaly or masses palpated, and no cervical lymphadenopathy. Supple, full range of motion without nuchal rigidity, or vertebral point tenderness. Chest/axilla: Normal chest wall appearance and motion. Nontender with no deformity. No lesions are appreciated. Cardiovascular: Regular rate and rhythm with a normal S1 and S2. No gallops, murmurs, or rubs. Normal PMI, no JVD. No pulse deficits. Respiratory: Lungs have equal breath sounds bilaterally, clear to auscultation and percussion. No rales, rhonchi or wheezes noted. No increased work of breathing, no retractions or nasal flaring. Abdomen/GI: Soft, with normal bowel sounds. No distension or tympany. No guarding or rebound. No evidence of tenderness throughout. Back: No spinal tenderness. No costovertebral tenderness. Skin: Warm, dry with normal turgor. Normal color with no rashes, no lesions, and no evidence of cellulitis. MS/ Extremity: Pulses equal, no cyanosis. Neurovascular intact. Full, normal range of motion. Neuro: Awake and alert, GCS 15, oriented to person, place, time, and situation. Cranial nerves II-XII grossly intact. Motor strength 5/5 in all extremities. Sensory grossly intact. Psych: Awake, alert, with orientation to person, place and time. Behavior, mood, and affect are within normal limits Vital Signs: 01:31 BP 147 / 98; Pulse 99; Resp 18; Temp 98.5(O); Pulse Ox 99% on R/A; Weight 98.43 kg; oe Height 5 ft. 2 in. ; 02:45 BP 143 / 72; Pulse 103; Pulse Ox 99% on R/A; Pain 7/10; tm6 03:22 BP 131 / 82; Pulse 104; Resp 18; Temp 98.2(TE); Pulse Ox 98% on R/A; Pain 2/10; tm6 01:31 Body Mass Index 39.69 (98.43 kg, 157.48 cm) oe 02:45 Pain Scale: Adult tm6 03:22 Pain Scale: Adult tm6 MDM: 01:23 Patient medically screened. sp4 02:56 ED course: EXAM DESCRIPTION: Chest Pa And Lat (2 Views) CLINICAL HISTORY: COUGH sp4 COMPARISON: None. FINDINGS: Frontal and lateral radiographic views of the chest. Cardiomediastinal silhouette: Normal size and contour. Lungs: No consolidation, pneumothorax, or pleural effusion. Low lung volumes. Bones: No acute osseous abnormality. Upper abdomen: No abnormality identified. IMPRESSION: 1. No acute pulmonary process identified. . 02:57 Differential Diagnosis: Obstructed Airway Bronchitis Influenza Upper Respiratory sp4 Infection Sinusitis. Data reviewed: vital signs, nurses notes. 03:08 Consideration of Admission/Observation Escalation of care including sp4 admission/observation considered. ED course: Patient is stable for discharge home with as needed medications. . 11/03 01:20 Order name: SARS RAPID; Complete Time: 02:56 sp4 11/03 01:20 Order name: Influenza Screen (a \T\ B); Complete Time: 02:56 sp4 11/03 01:23 Order name: Urinalysis W/Microscopic; Complete Time: 02:56 sp4 11/03 01:23 Order name: Test, Urine; Complete Time: 02:56 sp4 11/03 01:23 Order name: Chest Pa And Lat (2 Views) XRAY sp4 Administered Medications: 01:30 Drug: Dextromethorphan-Guaifenesin PO Liquid 10 mg-100 mg/5 mL 10 ml PO once Route: PO; tm6 01:42 Drug: Promethazine PO 25 mg PO once Route: PO; tm6 01:42 Drug: Ibuprofen PO 800 mg PO once Route: PO; tm6 01:42 Drug: Acetaminophen PO 1000 mg PO once Route: PO; tm6 Disposition Summary: 11/04/23 03:09 Discharge Ordered Problem: new sp4 Symptoms: have improved sp4 Condition: Stable sp4 Diagnosis - Other specified viral diseases sp4 - Acute systemic viral illness,, Common Cold sp4 Followup: sp4 - With: Private Physician - When: 7 - 10 days - Reason: Re-evaluation by your physician Discharge Instructions: - Discharge Summary Sheet sp4 - Viral Illness, Adult sp4 Forms: - Patient Portal Instructions sp4 Prescriptions: - dextromethorphan-guaifenesin 10-200 mg Oral capsule - take 2 capsule ORAL route every 4 hours PRN cough; 42 capsule; Refills: 0, sp4 Product Selection Permitted - phenylephrine HCl 5 mg Oral tablet - take 1 tablet ORAL route every 4 hours PRN congestion; 42 tablet; Refills: 0, sp4 Product Selection Permitted - Ibuprofen 800 mg Oral Tablet - take 1 tablet ORAL route every 8 hours As needed take with food; 30 tablet; sp4 Refills: 0, Product Selection Permitted - promethazine 25 mg Oral tablet - take 1 tablet ORAL route every 6 hours As needed PRN nausea; 30 tablet; sp4 Refills: 0, Product Selection Permitted Signatures: Dispatcher [employer] Gwendolyn Valle, RN RN pf1 Blu Leahy MD MD sp4 Gamaliel Duong RN RN tm6
--- NOTE | 2023-11-04 03:10 | ER ---
Nurse's Notes [facility] Name: Luciana Alvarado Age: 28 yrs Sex: Female : 1995 Arrival Date: 11/04/2023 Time: 01:10 Bed 13 Private MD: Diagnosis: Other specified viral diseases;Acute systemic viral illness,, Common Cold Presentation: 11/03 01:18 Chief complaint: Patient states: body aches with cough and congestion, onset 1 week pf1 with SOB x 1 day. 01:18 Coronavirus screen: Vaccine status: Patient reports being unvaccinated. Client denies pf1 travel out of the [place] in the last 14 days. Client presents with at least one sign or symptom that may indicate coronavirus-19. Ebola Screen: Patient negative for fever greater than or equal to 101.5 degrees Fahrenheit, and additional compatible Ebola Virus Disease symptoms. Resp Distress? No respiratory distress is noted at this time. Initial Sepsis Screen: Does the patient meet any 2 criteria? No. Patient's initial sepsis screen is negative. Does the patient have a suspected source of infection? No. Patient's initial sepsis screen is negative. Risk Assessment: Do you want to hurt yourself or someone else? Patient reports no desire to harm self or others. 01:18 Method Of Arrival: Ambulatory pf1 01:18 Acuity: LC 4 pf1 03:25 Onset of symptoms is unknown. tm6 Triage Assessment: 01:18 General: Appears in no apparent distress. comfortable, well groomed, well developed, pf1 Behavior is cooperative, anxious. 01:18 Pain: Complains of pain in generlized body aches Pain currently is 10 out of 10 on a pf1 pain scale. Pain began 1 week. EENT: Reports nasal congestion. Respiratory: Reports cough that is. Respiratory: Reports shortness of breath. 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 Last tetanus immunization: < 10 years ago Flu vaccine is not up to date. - Social history:: Smoking status: Patient denies any tobacco usage or history of. Patient/guardian denies using alcohol, street drugs. - Family history:: not pertinent. Screenin:39 [facility] ED Fall Risk Assessment (Adult) History of falling in the last 3 months, tm6 including since admission No falls in past 3 months (0 pts) Confusion or Disorientation No (0 pts) Intoxicated or Sedated No (0 pts) Impaired Gait No (0 pts) Mobility Assist Device Used No (0 pt) Altered Elimination No (0 pt) Score/Fall Risk Level 0 - 2 = Low Risk Oriented to surroundings, Maintained a safe environment. Abuse screen: Denies threats or abuse. Denies injuries from another. Nutritional screening: No deficits noted. Tuberculosis screening: No symptoms or risk factors identified. Assessment: 01:39 General: Appears in no apparent distress. Behavior is calm, cooperative. General: tm6 Behavior is crying. Pain: Complains of pain in face Pain currently is 10 out of 10 on a pain scale. Quality of pain is described as pulsating. Neuro: Level of Consciousness is awake, alert, obeys commands, Oriented to person, place, time, situation. Neuro: Reports headache in entire. Cardiovascular: Capillary refill < 3 seconds Patient's skin is warm and dry. Respiratory: Reports cough that is non-productive, Airway is patent Respiratory effort is even, unlabored, Respiratory pattern is regular, symmetrical, Breath sounds are clear. GI: Abdomen is flat, non-distended. : No signs and/or symptoms were reported regarding the genitourinary system. EENT: Reports nasal congestion nasal discharge. Derm: No signs and/or symptoms reported regarding the dermatologic system. Musculoskeletal: No signs and/or symptoms reported regarding the musculoskeletal system. 02:47 Reassessment: Patient and/or family updated on plan of care and expected duration. Pain tm6 level reassessed. Patient is alert, oriented x 3, equal unlabored respirations, skin warm/dry/pink. 03:23 Reassessment: Patient and/or family updated on plan of care and expected duration. Pain tm6 level reassessed. Patient is alert, oriented x 3, equal unlabored respirations, skin warm/dry/pink. Vital Signs: 01:31 BP 147 / 98; Pulse 99; Resp 18; Temp 98.5(O); Pulse Ox 99% on R/A; Weight 98.43 kg; oe Height 5 ft. 2 in. ; 02:45 BP 143 / 72; Pulse 103; Pulse Ox 99% on R/A; Pain 7/10; tm6 03:22 BP 131 / 82; Pulse 104; Resp 18; Temp 98.2(TE); Pulse Ox 98% on R/A; Pain 2/10; tm6 01:31 Body Mass Index 39.69 (98.43 kg, 157.48 cm) oe 02:45 Pain Scale: Adult tm6 03:22 Pain Scale: Adult tm6 ED Course: 01:14 Patient arrived in ED. gm2 01:18 Blu Leahy MD is Attending Physician. sp4 01:21 Gamaliel Duong, RN is Primary Nurse. tm6 01:30 Influenza Screen (a \T\ B) Sent. tm6 01:30 SARS RAPID Sent. tm6 01:34 Triage completed. pf1 01:39 No provider procedures requiring assistance completed. tm6 01:39 Patient has correct armband on for positive identification. Placed in gown. Bed in low tm6 position. Call light in reach. Side rails up X2. Provided Education on: plan of care. Client placed on continuous cardiac and pulse oximetry monitoring. NIBP monitoring applied. Pulse ox on. NIBP on. Door closed. Noise minimized. Warm blanket given. 01:39 Arm band placed on right wrist. tm6 01:46 Urinalysis W/Microscopic Sent. tm6 01:46 Test, Urine Sent. tm6 01:47 Pillow given. tm6 02:04 Chest Pa And Lat (2 Views) XRAY In Process Unspecified. EDMS 03:25 Patient did not have IV access during this emergency room visit. tm6 Administered Medications: 01:30 Drug: Dextromethorphan-Guaifenesin PO Liquid 10 mg-100 mg/5 mL 10 ml PO once Route: PO; tm6 01:42 Drug: Promethazine PO 25 mg PO once Route: PO; tm6 01:42 Drug: Ibuprofen PO 800 mg PO once Route: PO; tm6 01:42 Drug: Acetaminophen PO 1000 mg PO once Route: PO; tm6 Medication: 01:39 VIS not applicable for this client. tm6 Outcome: 03:09 Discharge ordered by . sp4 03:23 Discharged to home ambulatory, tm6 03:23 Condition: stable 03:23 Discharge instructions given to patient, Instructed on discharge instructions, follow up and referral plans. medication usage, Demonstrated understanding of instructions, follow-up care, medications, Prescriptions given X 4, 03:25 Patient left the ED. tm6 Signatures: Dispatcher [employer] EDMS Noel Simon Pamala RN RN pf1 Blu Leahy MD MD sp4 Ermelinda Warner 2 Gamaliel Duong RN RN tm6
[2023-11-04 03:58] VITALS: BP 131/82; TEMP 98.2; O2SAT 98
--- NOTE | 2023-11-04 13:34 | RAD REPORT ---
EXAM DESCRIPTION: RAD - Chest Pa And Lat (2 Views) - 11/04/2023 2:02 am CLINICAL HISTORY: COUGH COMPARISON: None. FINDINGS: Frontal and lateral radiographic views of the chest. Cardiomediastinal silhouette: Normal size and contour. Lungs: No consolidation, pneumothorax, or pleural effusion. Low lung volumes. Bones: No acute osseous abnormality. Upper abdomen: No abnormality identified. IMPRESSION: 1. No acute pulmonary process identified. Electronically signed by: Del Hernandez DO 11/04/2023 02:28 AM CDT M Due to temporary technical issues with the PACS/Fluency reporting system, reports are being signed by the in house radiologist without review as a courtesy to ensure prompt reporting. The interpreting r adiologist is fully responsible for the content of the report.
== END ==
LOC: ER 01:10
DX: J00 Acute nasopharyngitis [common cold] (principal); B33.8 Other specified viral diseases; B34.9 Viral infection, unspecified; Z11.52 Encounter for screening for COVID-19; Z88.0 Allergy status to penicillin
CPT/HCPCS: 36415; 71046; 81001; 81025; 87804; 87811; Q0169